=== PATIENT | female | born 2000 | race Caucasian/White ===

== ENCOUNTER 2022-01-09 14:13 | Inpatient (IN) | payer OTHER, SELFPAY ==
[2022-01-09 14:26] VITALS: BP 120/80; PULSE 77; RESP 16; O2SAT 99; BMI 22.1
--- NOTE | 2022-01-09 14:35 | ECG_ITS ---
Test Reason : med clearance Blood Pressure : / mmHG Vent. Rate : 070 BPM Atrial Rate : 070 BPM P-R Int : 120 ms QRS Dur : 080 ms QT Int : 366 ms P-R-T Axes : 016 072 043 degrees QTc Int : 395 ms Normal sinus rhythm with sinus arrhythmia Normal ECG No previous ECGs available Referred By: Anne-Marie Mederos Electronically Signed By:WALTER SANCHEZ MD
--- NOTE | 2022-01-09 15:21 | ED.PSYCH ---
HPI - Psych General Chief Complaint: Psychiatric Symptoms Stated Complaint: SEC 12,SI & HI FROM [facility] PER EMS Time Seen by Provider: 01/09/22 14:16 Source: patient Mode of arrival: EMS Limitations: no limitations History of Present Illness HPI Narrative: Patient is a 21-year-old female who presents to the emergency department via EMS for evaluation of increasing anxiety and depression. Patient is coming from a community program, [facility], which is a [facility] woman's program where she was evaluated by a clinician will admit her for the 1st time today. Patient is endorsing increasing anxiety and depression with increased life stressors. Reporting that she has been missing school, she is currently in 11th grade. Reports a lot of stress regarding her family in taking care of her siblings. She states that last night she was feeling suicidal and she was thinking about cutting/stabbing herself but she did not. At this time she denies any suicidal ideations. She denies any homicidal ideations. Denies fevers, chills, recent upper respiratory symptoms, chest pain, palpitations, shortness of breath, difficulty breathing, nausea, vomiting, abdominal pain, weakness. Related Data Home Medications Medication Instructions Recorded Confirmed No Known Home Meds 01/09/22 01/09/22 Allergies Allergy/AdvReac Type Severity Reaction Status Date / Time No Known Allergies Allergy Verified 01/09/22 14:35 Review of Systems Review of Systems: Constitutional : No Fever, No Chills ENT/Mouth : No Ear Pain, No Nasal Congestion, No sore throat Eyes: No Eye Pain, No Swelling, No Redness Cardiovascular : No Chest Pain, No SOB Respiratory : No Cough, No Sputum, No Dyspnea Gastrointestinal : No Nausea, No Vomiting, No Diarrhea, No Hematochezia, No Melena Genitourinary : No Dysuria, No Urinary Frequency, No Hematuria Musculoskeletal : No Myalgias Skin : No Skin Lesions, No rash Neuro : No Weakness, No Numbness, No Paresthesias, No Dizziness, No Headache Psych : positive Anxiety, positive Depression, positive SI/HI Heme/Lymph: No Lymphadenopathy Endocrine : No Polyuria, No Polydipsia Yes all other systems are reviewed and are negative PMFSH Past Medical History Attestation statement: The following information was validated with the patient. Source: old records reviewed Social History Social History (Reviewed 01/09/22 @ 15:28 by BLAISE Mims Alcohol intake: unknown Patient Tobacco Use Status: Never used Tobacco Smoked in Last 30 Days: No Use of substances other than those prescribed or required for medical reasons: Refusing to respond Any prior treatment program specific to substance use: No Advance Directives: No Advance Directives Information Provided: No Physical Exam Vital Signs: Vital Signs: Last Vital Signs Temp 97.8 F 01/09/22 15:22 Pulse 75 01/09/22 15:22 Resp 18 01/09/22 15:22 BP 110/65 01/09/22 15:22 Pulse Ox 96 01/09/22 15:22 O2 Del Method 01/09/22 15:22 BMI result Body Mass Index 18.1 Vital signs have been reviewed as normal and appeared to be correct. Blood pressure normal.? Heart rate normal.? Respiration rate normal. Temperature normal.? Oxygen saturation normal. Appearance: Alert.?Oriented to person, place and time. No acute distress.?Normal affect. Eyes: Pupils equal, round and reactive to light.? ENT: Pharynx normal.?? Neck: Normal inspection.? Neck supple.?? CVS: Heart sounds normal. Normal heart rate and rhythm.? Pulses normal.?? Respiratory: No respiratory distress.? Lung sounds clear to auscultation bilaterally?? Abdomen: Soft and non-tender. Normoactive bowel sounds. Skin: Skin warm and dry.? Normal skin color.? Extremities: No lower extremity edema.? Neuro: Moves all extremities spontaneously. Sensation intact bilaterally. CN II-XII intact. No focal neuro deficits. Ambulates with normal steady gait. Course Course Course Narrative: Patient is a 21-year-old female who presents emergency department via EMS today for evaluation of increasing anxiety and depression patient states that she has not been on medications for these in a few years. Feelings of anxiety and depression of become increasingly worse with increasing life stressors causing her to miss school, had suicidal thoughts last night but denies them at this time. She is currently calm and is cooperative. No physical complaints at this time will obtain basic labs clearance, drug abuse screening, ethanol level. Will refer patient to Behavioral Health team for evaluation as to whether inpatient services are required at this time. Reevaluation(s) Reevaluation #1: Labs overall unremarkable. Remain calm and cooperative. No apparent distress. Patient placed in physician observation, the reason for physician observation if she will require additional time to be evaluated by Behavioral Health team for disposition planning. Time: 16:33 [facility] - Psych Medical Records Attestation: I reviewed the patient's medical records. Lab Data Attestation: I reviewed the patient's lab results. Result diagrams: 01/09/22 15:38 01/09/22 15:38 Labs: Lab Results 01/09/22 01/09/22 01/09/22 Range/Units 15:23 15:38 15:38 WBC 7.3 (4.8-10.8) X10*3/uL RBC 4.90 (4.20-5.50) X10*6/uL Hgb 14.7 (12.0-16.0) g/dl Hct 43.4 (37.0-47.0) % MCV 88.6 (80.0-98.0) fL MCH 30.0 (27.0-33.0) pg MCHC 33.9 (31.0-35.0) g/dl RDW 11.9 (11.0-16.0) % Plt Count 243 (160-400) X10*3/uL MPV 9.7 (9.4-12.3) fL Immature Gran % (Auto) 0.1 (0.0-0.4) % Neut % (Auto) 66.3 (45-73) % Lymph % (Auto) 27.7 (20-40) % [place] % (Auto) 5.1 (2-11) % Eos % (Auto) 0.4 (0-4) % Baso % (Auto) 0.4 (0-2) % Lymph # (Auto) 2.0 (1.2-4.9) X10*3/uL [place] # (Auto) 0.4 (0.1-1.2) X10*3/uL Eos # (Auto) 0.0 (0.0-0.4) X10*3/uL Baso # (Auto) 0.0 (0.0-0.2) X10*3/uL Abs Immat Gran (auto) 0.01 (0.00-0.03) X10*3/uL Absolute Neuts (auto) 4.8 (2.0-8.3) x10*3/uL Absolute Nucleated RBC 0.000 (0.0-0.012) X10*3/uL Nucleated RBC % (auto) 0.0 (0.0-0.2) /100WBC Sodium 137 (135-145) mmol/L Potassium 3.8 (3.3-5.1) mmol/L Chloride 109 H (96-108) mmol/L Carbon Dioxide 15 L (22-29) mmol/L Anion Gap 17 (12-20) BUN 9 (9-16) mg/dL Creatinine 0.70 (0.5-1.4) mg/dL Estim Creat Clear Calc 83.3 Estimated GFR > 60 Random Glucose 114 (60-115) mg/dL Calcium 8.9 (8.4-10.2) mg/dL Total Bilirubin 0.8 (0.0-1.0) mg/dL AST 18 (5-31) U/L ALT 10 (0-31) U/L Alkaline Phosphatase 65 (39-117) U/L Total Protein 7.6 (6.5-8.0) g/dL Albumin 4.4 (3.5-5.0) g/dL Ethyl Alcohol < 10 mg/dL COVID-19 (RIOS) Negative (Negative) COVID-19 Clin Com See Note Discharge Plan Discharge Clinical Impression: Acute anxiety, Depression Patient Disposition: Still a Patient Prescriptions: No Action No Known Home Meds
[2022-01-09 15:22] VITALS: BP 110/65; PULSE 75; RESP 18; TEMP 36.6; O2SAT 96; BMI 18.1
[2022-01-09 15:43] LABS: MANUAL DIFF FLAG NO
[2022-01-09 15:46] LABS: Basophils Percent Auto 0.4 % (0-2); Eosinophils Percent Auto 0.4 % (0-4); Hematocrit 43.4 % (37.0-47.0); Hemoglobin 14.7 g/dl (12.0-16.0); Imm Gran Abs Auto 0.01 X10*3/uL (0.00-0.03); Imm Gran Pct Auto 0.1 % (0.0-0.4); Lymphocytes Percent Auto 27.7 % (20-40); Mean Corpuscular HGB Conc 33.9 g/dl (31.0-35.0); Mean Corpuscular Volume 88.6 fL (80.0-98.0); Mean Platelet Volume 9.7 fL (9.4-12.3); Monocytes Absolute Auto 0.4 X10*3/uL (0.1-1.2); Monocytes Percent Auto 5.1 % (2-11); Neutrophils Absolute Auto 4.8 x10*3/uL (2.0-8.3); Neutrophils Percent Auto 66.3 % (45-73); Platelet Count 243 X10*3/uL (160-400); Red Cell Distribution Width 11.9 % (11.0-16.0); White Blood Count 7.3 X10*3/uL (4.8-10.8)
[2022-01-09 16:05] LABS: COVID-19 Test Negative (Negative); IDNOW Serial# 9DB6401D
[2022-01-09 16:10] LABS: Alanine Aminotransferase 10 U/L (0-31); Albumin Level 4.4 g/dL (3.5-5.0); Alkaline Phosphatase 65 U/L (39-117); Anion Gap 17 (12-20); Aspartate Amino Transferase 18 U/L (5-31); Bilirubin Total 0.8 mg/dL (0.0-1.0); Blood Urea Nitrogen 9 mg/dL (9-16); Calcium 8.9 mg/dL (8.4-10.2); Carbon Dioxide 15 mmol/L (22-29); Chloride 109 mmol/L (96-108); Creatinine Clr Calc Pharmacy 83.3; Estimated Glomerular Filt Rate > 60; Ethanol < 10 mg/dL; Glucose Random 114 mg/dL (60-115); Potassium 3.8 mmol/L (3.3-5.1); Sodium 137 mmol/L (135-145); Total Protein 7.6 g/dL (6.5-8.0)
[2022-01-09 19:06] LABS: Appearance Urine Cloudy; Color Urine Yellow; Glucose Urine UA Negative (Negative); Leukocyte Esterase Urine Moderate (2+) (Negative); Nitrite Urine Positive (Negative); PH 6.5 (5.0-9.0); UMIC TRIGGER UACC YES; Urine Blood Negative (Negative); Urine Ketones Trace mg/dL (Negative); Urine Protein Negative (Neg-Trace)
[2022-01-09 19:07] LABS: UPreg QC Valid YES; Urine Pregnancy NEGATIVE (NEGATIVE)
[2022-01-09 19:11] LABS: Bacteria Urine 4+ (None Seen); Hyaline Casts Urine 0-2 /LPF (0-2); RBC Urine 0-2 /HPF (0-2); UACC Culture Trigger YES
[2022-01-09 19:24] LABS: Amphetamine Screen Urine Not Detected (Not Detect); Barbiturates, Urine Not Detected (Not Detect); Benzodiazepines Screen Urine Not Detected (Not Detect); Cannabinoid Screen Urine POSITIVE (Not Detect); Cocaine Screen Urine Not Detected (Not Detect); Fentanyl, urine Not Detected (Not Detect); Opiate Screen Urine Not Detected (Not Detect); Phencyclidine Screen Urine Not Detected (Not Detect)
[2022-01-09] MEDS: diphenhydrAMINE HCL 25 MG CAPSULE PO (20:00)
[2022-01-09] MEDS: Nitrofurantoin Monohyd/M-Cryst 100 MG CAPSULE PO (21:40)
[2022-01-10 02:34] LABS: CT PCR NOT DETECTED (Not Detect.); NG PCR NOT DETECTED (Not Detect.)
--- NOTE | 2022-01-10 06:12 | PC.NURSE ---
Patient slept through the night, no distress observed/reported, behavior appropriate and non concerning, disposition per [facility] is section 12 inpatient bed search, med rec completed/patient is currently not on any home medication, patient is + for UTI, Macrobid 100 mg BID started, medication compliant, Benadryl 25 mg po administered 1999 per request with + effect, VSS, will continue to monitor.
[2022-01-10 07:38] VITALS: BP 104/64; PULSE 70; RESP 17; TEMP 36.8; O2SAT 97
--- NOTE | 2022-01-10 08:07 | PC.NURSE ---
PT IS A/O X 4 NO SOB/TONYA NOTED SKIN PINK WARM DRY SPEAKS IN FULL SENTENCES. PT DENIES ANY SI/HI. PT IS ON [facility]ONE SPEAKING WITH HER GRANDMOTHER. PT C/O SANJIV ARMS/LEGS SHAKING AND INCREASE ANXIETY. MD AWARE. PT AWARE OF PLAN OF CARE.
[2022-01-10] MEDS: Nitrofurantoin Monohyd/M-Cryst 100 MG CAPSULE PO ×2 (08:42→20:51)
[2022-01-10] MEDS: hydrOXYzine HCL 50 MG TABLET PO (08:42)
--- NOTE | 2022-01-10 09:43 | PC.NURSE ---
FAUSTO ([facility], ) CALLED [facility] AND SPOKE WITH THIS RN STATING PT THIS PT WAS ACCEPTED BY AND THE ADMITTING MD IS DR. WIGGINS. PT IS AWARE OF PLAN OF CARE.
--- NOTE | 2022-01-10 12:41 | PC.NURSE ---
pt is taking a shower.
[2022-01-10 13:11] VITALS: BP 123/66; PULSE 95; RESP 16; TEMP 36.8; O2SAT 98
--- NOTE | 2022-01-10 13:20 | PC.NURSE ---
pt c/o increase anxiety, mlp aware
[2022-01-10] MEDS: LORazepam 1 MG TABLET PO (13:39)
--- NOTE | 2022-01-10 19:01 | PC.ADMIT ---
Pt is a 21 y/o female presenting with SI with a plant to cut to kill self. Pt came with [facility] worker, crisis assessment states she had thoughts to hurt others in her young women's group but denies plan/intent and does not report HI during admission assessment. Pt COVID -. UTOX positive for THC. Pt reports losing weight due (approx 20 lbs) to her depression, stating she doesn't eat unless food is handed to her. Pt has difficulty falling and staying asleep. Pt reports losing her step father recently, states it is partly why she's here. Pt states she can come to staff if feeling like she wants to hurt herself or others. Pt wants to work on controlling outbursts and managing anxiety. Provider notified and orders are placed. Monitor for safety and start tx plan.
[2022-01-10] MEDS: Magnesium Hydrox/Alum Hydrox 30 ML ORAL.SUSP PO (19:32)
[2022-01-10] MEDS: diphenhydrAMINE HCL 25 MG CAPSULE PO (20:51)
[2022-01-10] MEDS: Acetaminophen 325 MG TABLET 650 MG PO (20:51)
[2022-01-10 21:45] VITALS: BP 135/79; PULSE 125; TEMP 36.8; O2SAT 100
[2022-01-10] MEDS: Midazolam HCl/PF 2 MG/2 ML VIAL IM (22:26)
--- NOTE | 2022-01-10 22:51 | PC.NURSE ---
Pt not responding, Pt starts seizing around 2139, r d intern began 2147. Md Diaz ordered 2 mg IM Versed to right deltoid. 2144 vitals temp 98.3, bp 135/79, HR 125, 100% o2 room air. Pt transported to bed, placed on side. continuing to monitor.
--- NOTE | 2022-01-11 00:21 | PM.EVENT ---
Event Note Date of Service: 01/11/22 Event Note: A rapid response was called on pt around 9:30 pm for possible seizure episode. per hx pt has no hx of seizure disorder. she is not rigid, has eyes closes and has full body shaking. not responding to verbal command. Pupils dilated but reactived. given 2mg of IM versed which while we were trying to inject pt pulled her arm and showed resistant. I am not completely clear if pt is having real or pseudo seizure. Discussed with Psych PA. Pt will have labs including LA, as well as consult to neurology for further evaluation pt will remain on medical floor
[2022-01-11 01:01] LABS: Lactic Acid 0.8 mmol/L (0.5-2.0)
[2022-01-11 01:09] LABS: Anion Gap 14 (12-20); Blood Urea Nitrogen 11 mg/dL (9-16); Carbon Dioxide 23 mmol/L (22-29); Chloride 106 mmol/L (96-108); Creatinine Clr Calc Pharmacy 80.9; Estimated Glomerular Filt Rate > 60; Glucose Random 97 mg/dL (60-115); Sodium 139 mmol/L (135-145)
[2022-01-11 06:00] VITALS: BP 107/62; PULSE 86; RESP 18; TEMP 36.5; O2SAT 99
[2022-01-11] MEDS: Acetaminophen 325 MG TABLET 650 MG PO (08:56)
[2022-01-11] MEDS: Nitrofurantoin Monohyd/M-Cryst 100 MG CAPSULE PO ×2 (08:58→19:12)
[2022-01-11] MEDS: hydrOXYzine HCL 25 MG TABLET PO (09:40)
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
--- NOTE | 2022-01-11 15:02 | P.CNNE_ITS ---
History of Present Illness Data of Consult Service Date: 01/11/22 Primary Care Provider: None Physician HPI Reason for consult: shaking episode Question Sz vs pseudosz. 21 yr woman admitted to psych for Panic attacks, anxiety depression and suicidal thought in hands and history of PTSD . A rapid response was called on pt around 9:30 pm for possible seizure episode. No past hx of seizure disorder. She was not rigid, had eyes closed and had full body shaking, and was not responding to verbal command. Pupils dilated but reactive. given 2mg of IM versed during which she pulled her arm and showed resistance.She says that this started after a phone call with her mother she was very anxiouus and went into a panic attack where she her heart was racing and she felt tightness in her throat and her chest and then she started shaking all over. The people around her sounded very distant. She says she's never had anything like this before Review of Systems Review of Systems: Constitutional : No Fever, No Chills ENT/Mouth : No Ear Pain, No Nasal Congestion, No sore throat Eyes: No Eye Pain, No Swelling, No Redness Cardiovascular : No Chest Pain, No SOB Respiratory : No Cough, No Sputum, No Dyspnea Gastrointestinal : No Nausea, No Vomiting, No Diarrhea, No Hematochezia, No Melena Genitourinary : No Dysuria, No Urinary Frequency, No Hematuria Musculoskeletal : No Myalgias Skin : No Skin Lesions, No rash Neuro : No Weakness, No Numbness, No Paresthesias, No Dizziness, No Headache Psych : positive Anxiety, positive Depression, positive SI/HI Heme/Lymph: No Lymphadenopathy Endocrine : No Polyuria, No Polydipsia Yes all other systems are reviewed and are negative [facility] Social History Social History Household Members Other:: mom and 2 siblings Housing: Apartment Do you presently have visiting nurse or other home services: No Alcohol intake: unknown Patient Tobacco Use Status: Current everyday Tobacco user Smoked in Last 30 Days: No e-Cigarette/Vaping Use: Currently Using Frequency of e-Cigarette/Vaping Use: daily Patient Interested in Nicotine Replacement: Yes (wants to try gum) Patient Given Instructions on How to Stop Smoking: Yes Date Education Initiated: 01/10/22 Second Hand Smoke Exposure: Yes Use of substances other than those prescribed or required for medical reasons: Yes Substance Use Type: Marijuana Substance Use Frequency: Daily Last Used Substance: Just Prior to Admission Currently Displaying Signs/Symptoms of Drug Intoxication Withdrawal: No Any prior treatment program specific to substance use: No Have you been hit, kicked, punched, or otherwise hurt by someone within the past year? If so, by whom?: No Do you feel safe in your current relationship?: No Current Relationship Is there a partner from a previous relationship who is making you feel unsafe now?: No Advance Directives: No Advance Directives Information Provided: No Do you have thoughts of harming others: None Do you have a plan to hurt others: No Plan Recently lost weight without trying: Yes How much weight loss: 14-23 pounds Eating poorly because of decreased appetite: No Nutrition screen score: 4 Nutrition Risks: No Nutritional Risk Patient : No : No Poor oral hygiene: No service: No Sexual orientation: Decline to Answer Meds Allergies Allergy/AdvReac Type Severity Reaction Status Date / Time No Known Allergies Allergy Verified 01/09/22 14:35 Active Medications: Current Medications Acetaminophen (Acetaminophen 325 Mg Tablet) 650 mg PO Q6H PRN PRN Reason: Headache/Pain Mild Scale (1-3) Last Admin: 01/11/22 08:56 Dose: 650 mg Al Hydroxide/Mg Hydroxide (Magnesium Hydrox/Alum Hydrox 30 Ml Oral.Susp) 30 ml PO Q6H PRN PRN Reason: Heartburn/Nausea Last Admin: 01/10/22 19:32 Dose: 30 ml Clonidine HCl (Clonidine Hcl 0.1 Mg Tablet) 0.1 mg PO Q4H PRN; Protocol PRN Reason: anxiety Diphenhydramine HCl (Diphenhydramine Hcl 25 Mg Capsule) 50 mg PO Q4H PRN PRN Reason: agitation Diphenhydramine HCl (Diphenhydramine Hcl 25 Mg Capsule) 25 mg PO BEDTIME PRN PRN Reason: Insomnia Last Admin: 01/10/22 20:51 Dose: 25 mg Haloperidol (Haloperidol 5 Mg Tablet) 5 mg PO Q4H PRN PRN Reason: agitation Hydroxyzine HCl (Hydroxyzine Hcl 25 Mg Tablet) 25 mg PO Q6H PRN PRN Reason: Anxiety Last Admin: 01/11/22 09:40 Dose: 25 mg Lorazepam (Lorazepam 1 Mg Tablet) 2 mg PO Q4H PRN PRN Reason: agitation Magnesium Hydroxide (Milk Of Magnesia 30 Ml Oral.Susp) 30 ml PO DAILY PRN PRN Reason: Constipation Nicotine Polacrilex (Nicotine Polacrilex 2 Mg Gum) 4 mg BUCCAL Q2H PRN PRN Reason: Nicotine Cravings Nitrofurantoin Macrocrystals (Nitrofurantoin Monohyd/M-Cryst 100 Mg Capsule) 100 mg PO BID [facility] Stop: 01/14/22 09:01 Last Admin: 01/11/22 08:58 Dose: 100 mg Trazodone HCl (Trazodone Hcl 50 Mg Tablet) 50 mg PO BEDTIME [facility] Home Medications Medication Instructions Recorded Confirmed Last Taken Type No Known Home Meds 01/09/22 01/09/22 Unknown History Physical Exam Vital Signs: Vital Signs: Last Vital Signs Temp 97.7 F 01/11/22 06:00 Pulse 86 01/11/22 06:00 Resp 18 01/11/22 06:00 BP 107/62 01/11/22 06:00 Pulse Ox 99 01/11/22 06:00 O2 Del Method 01/11/22 06:00 BMI result Body Mass Index 18.1 Neuro: Other: Alert and oriented with normal intellectual functions. Normal neurological examination Results Labs CBC & Chem 7: 01/09/22 15:38 01/11/22 00:44 Labs: BMP 01/11/22 00:44 Sodium 139 Potassium 4.0 Chloride 106 Carbon Dioxide 23 BUN 11 Creatinine 0.72 Calcium 9.0 Microbiology Microbiology Results: Microbiology 01/09/22 18:59 Urine clean catch - Urine denton top Urine Culture - Final Escherichia coli Assessment and Plan (1) Pseudoseizures: Status: Acute What she describes started with her panic attack and then went into generalized shaking. Attending doctors observation is noted above. These findings are most consistent with panic and pseudoseizures. There is no previous history of seizures. If she is still in the hospital on Friday she can have a routine EEG. Treatment of her anxiety and depression has been started with clonidine 0.1 mg and Prozac 10 mg. Procedures Date of Service Date of Service: 01/11/22
[2022-01-11] MEDS: FLUoxetine HCl 10 MG CAPSULE PO (17:01)
[2022-01-11 17:07] VITALS: BP 119/58; PULSE 84
[2022-01-11] MEDS: traZODone HCL 50 MG TABLET PO (19:12)
--- NOTE | 2022-01-11 21:13 | PC.NURSE ---
Pt submitted a Three Day Notice on Thursday 01/11 up on Tuesday 01/16.
[2022-01-12] MEDS: traZODone HCL 50 MG TABLET PO ×2 (01:26→19:23)
[2022-01-12 06:00] VITALS: BP 100/60; PULSE 84; RESP 18; TEMP 36.6; O2SAT 100
[2022-01-12] MEDS: Nitrofurantoin Monohyd/M-Cryst 100 MG CAPSULE PO ×2 (08:56→19:24)
[2022-01-12] MEDS: FLUoxetine HCl 10 MG CAPSULE PO (08:56)
[2022-01-12] MEDS: cloNIDine HCL 0.1 MG TABLET PO (09:11)
[2022-01-12] MEDS: Acetaminophen 325 MG TABLET 650 MG PO (09:11)
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
[2022-01-12 16:08] VITALS: BP 98/53; PULSE 72; TEMP 36.3; O2SAT 100
[2022-01-12] MEDS: hydrOXYzine HCL 25 MG TABLET PO (19:23)
[2022-01-13 06:00] VITALS: BP 109/51; PULSE 100; RESP 20; TEMP 36.4; O2SAT 99
[2022-01-13] MEDS: FLUoxetine HCl 10 MG CAPSULE PO (09:02)
[2022-01-13] MEDS: Nitrofurantoin Monohyd/M-Cryst 100 MG CAPSULE PO ×2 (09:02→20:16)
[2022-01-13] MEDS: hydrOXYzine HCL 25 MG TABLET PO (10:31)
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
[2022-01-13] MEDS: cloNIDine HCL 0.1 MG TABLET PO (14:57)
[2022-01-13] MEDS: Milk of Magnesia 30 ML ORAL.SUSP PO (15:30)
[2022-01-13 15:55] VITALS: BP 108/69; PULSE 72; RESP 16; TEMP 36.4; O2SAT 100
[2022-01-13] MEDS: traZODone HCL 50 MG TABLET PO (20:16)
[2022-01-13] MEDS: Acetaminophen 325 MG TABLET 650 MG PO (22:28)
--- NOTE | 2022-01-13 22:33 | PC.NURSE ---
Addendum entered by Jose R Martinez RN 01/13/22 22:40: called to the lab and they said its ok. vaginal swab done. Original Note: Pt is alert and oriented. Pt is actively menstruating, Vaginal swab not done.
[2022-01-14 02:43] LABS: CT PCR NOT DETECTED (Not Detect.); NG PCR NOT DETECTED (Not Detect.)
[2022-01-14] MEDS: Nitrofurantoin Monohyd/M-Cryst 100 MG CAPSULE PO (08:43)
[2022-01-14] MEDS: FLUoxetine HCl 10 MG CAPSULE PO (08:44)
[2022-01-14 08:59] LABS: BV Int Neg Control Negative (Negative); BV Int Pos Control Positive (Positive)
[2022-01-14 09:01] VITALS: BP 95/60; PULSE 70; RESP 16; TEMP 36.5; O2SAT 99
[2022-01-14] MEDS: Ibuprofen 400 MG TABLET PO (09:29)
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
[2022-01-14] MEDS: hydrOXYzine HCL 25 MG TABLET PO (13:55)
[2022-01-14] MEDS: Fluconazole 150 MG TABLET PO (13:55)
[2022-01-14] MEDS: metroNIDAZOLE 500 MG TABLET PO ×2 (13:55→18:53)
[2022-01-14 16:02] LABS: COVID-19 Test Negative (Negative)
[2022-01-14 18:00] VITALS: BP 101/57; PULSE 81; TEMP 36.8; O2SAT 98
[2022-01-14] MEDS: cloNIDine HCL 0.1 MG TABLET PO (18:53)
[2022-01-14] MEDS: traZODone HCL 50 MG TABLET PO (23:06)
[2022-01-15 08:20] VITALS: BP 94/54; PULSE 66; RESP 16; TEMP 37; O2SAT 99
[2022-01-15] MEDS: FLUoxetine HCl 10 MG CAPSULE PO (09:44)
[2022-01-15] MEDS: metroNIDAZOLE 500 MG TABLET PO (09:44)
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
== END 2022-01-15 11:35 | disposition home or self-care (01) | DRG 751 ==
LOC: HO.ED 01-10 16:02 → HO.PM5 01-10 16:33
PROVIDERS: Nurse Practitioner Family; Registered Nurse; Admitting Provider Psychiatry & Neurology Psychiatry; Emergency Provider Emergency Medicine Emergency Medical Services; Visit Provider Psychiatry & Neurology Psychiatry
DX: F33.1 Major depressive disorder, recurrent, moderate (principal); R45.851 Suicidal ideations; R45.850 Homicidal ideations; R56.9 Unspecified convulsions; N39.0 Urinary tract infection, site not specified; F43.12 Post-traumatic stress disorder, chronic; F17.210 Nicotine dependence, cigarettes, uncomplicated; Z71.6 Tobacco abuse counseling; Z20.822 Contact with and (suspected) exposure to COVID-19
CPT/HCPCS: 36415; 80048; 80053; 80307; 81001; 81025; 82077; 83605; 85025; 87086; 87088; 87186; 87480; 87491; 87510; 87591; 87635; 87660; 93005; 99285; J2250